=== PATIENT | female | born 1930 | race Hispanic/Latino ===

== ENCOUNTER 2018-06-29 16:49 | Emergency (ER) | payer OTHER, MEDICARE ==
[2018-06-29] MEDS ORDERED: SODIUM CHLORIDE 0.9% 500ML 500 ML IV ONE (17:03)
[2018-06-29 17:22] LABS: APPEARANCE,URINE Clear (CLEAR); BILIRUBIN,URINE Negative (NEGATIVE); COLOR,URINE Yellow (YELLOW); GLUCOSE, URINE (UA) Negative (NEGATIVE); KETONES,URINE Negative (NEGATIVE); LEUKOCYTE ESTERASE ,URINE Trace (NEGATIVE); NITRATE,URINE Negative (NEGATIVE); OCCULT BLOOD,URINE Trace (NEGATIVE); PROTEIN,URINE Negative (NEGATIVE); UROBILINOGEN,URINE 0.2 mg/dL (0.2-1.0)
[2018-06-29 17:31] LABS: BACTERIA,URINE Rare /HPF (None Seen); RBC,URINE None Seen /HPF (0-1); SQUAMOUS EPITHELIAL CELL,UR None Seen /HPF (0-2); WBC,URINE 0-1 /HPF (0-1)
== END 2018-06-29 19:02 | disposition home or self-care (01) ==
LOC: EDH 16:49
DX: E86.0 Dehydration (principal); H81.399 Other peripheral vertigo, unspecified ear; I10 Essential (primary) hypertension; E78.5 Hyperlipidemia, unspecified; Z79.899 Other long term (current) drug therapy
CPT/HCPCS: 70450; 81001; 84484; 93005; 99285; J7040

== ENCOUNTER 2018-10-22 10:01 | Observation (INO) | payer OTHER, MEDICARE ==
[~2018-10-22] VITALS: Ht 147.3 cm; Wt 57.7 kg
[2018-10-22] MEDS ORDERED: SODIUM CHLORIDE 0.9% 1000ML 1,000 ML IV ONE ×2 (10:13→16:06)
[2018-10-22] MEDS ORDERED: ACETAMINOPHEN EXTRA STRENGTH 500 MG TABLET ONE (10:14)
[2018-10-22 10:35] LABS: BASOPHILS % (AUTO) 0.6 % (0.0-5.0); EOSINOPHILS % (AUTO) 0.1 % (0.0-8.0); HEMATOCRIT 39.7 % (36-48); LYMPHOCYTES % (AUTO) 12.3 % (21.0-51.0); MEAN CORPUSCULAR HEMOGLOBIN 28.5 pg (27.0-33.0); MEAN CORPUSCULAR HGB CONC 32.8 g/dL (32.0-36.0); MEAN CORPUSCULAR VOLUME 86.8 fL (79-99); MONOCYTES % (AUTO) 6.8 % (3.0-13.0); NEUTROPHILS % (AUTO) 80.2 % (40.0-77.0); PLATELET COUNT (AUTO) 197 K/uL (130-400); RED BLOOD CELL COUNT(AUTO) 4.57 MIL/uL (4.00-5.50); RED CELL DISTRIBUTION WIDTH 15.8 % (11.0-15.5); WHITE BLOOD COUNT (AUTO) 7.7 K/uL (4.8-10.8)
[2018-10-22 10:41] LABS: CARBON DIOXIDE 25 mmol/L (21-32); CHLORIDE 104 mmol/L (101-111); CREATININE 0.7 mg/dL (0.5-1.5); GLOMERULAR FILTR. RATE CALC 84 mL/min (>60); GLUCOSE,RANDOM 110 mg/dL (70-105); POTASSIUM 3.3 mmol/L (3.5-5.1); SODIUM SERUM 139 mmol/L (136-145); UREA NITROGEN, BLOOD 13 mg/dL (7-18)
[2018-10-22 10:48] LABS: INR 0.93 (0.85-1.15); PARTIAL THROMBOPLASTIN TIME 30.1 SEC (26.3-35.5); PROTHROMBIN TIME 9.8 SEC (9.6-11.6)
[2018-10-22 10:54] LABS: ALANINE AMINOTRANSFERASE 17 U/L (12-78); ALBUMIN 3.4 g/dL (3.5-5.0); ASPARTATE AMINOTRANSFERASE 24 U/L (10-37); BILIRUBIN,TOTAL 0.5 mg/dL (0.2-1.0); CREATINE KINASE, TOTAL 45 U/L (21-232); MYOGLOBIN 53 ng/mL (10-92); TOTAL PROTEIN, SERUM 6.5 g/dL (6.0-8.3); TROPONIN I < 0.04 ng/mL (0.00-0.06)
[2018-10-22 11:53] LABS: BILIRUBIN,URINE Negative (NEGATIVE); COLOR,URINE Yellow (YELLOW); GLUCOSE, URINE (UA) Negative (NEGATIVE); KETONES,URINE Negative (NEGATIVE); LEUKOCYTE ESTERASE ,URINE Negative (NEGATIVE); NITRATE,URINE Negative (NEGATIVE); OCCULT BLOOD,URINE Nonhemolyzed Trace (NEGATIVE); PROTEIN,URINE Negative (NEGATIVE)
[2018-10-22 11:57] LABS: APPEARANCE,URINE CLEAR (CLEAR)
[2018-10-22 12:34] LABS: BACTERIA,URINE Rare /HPF (None Seen); RBC,URINE 0-1 /HPF (0-1); SQUAMOUS EPITHELIAL CELL,UR Rare /HPF (0-2); WBC,URINE 0-1 /HPF (0-1)
[2018-10-22] MEDS ORDERED: MORPHINE SULFATE 2 MG/ML 1ML SYG IVP PRN (15:15)
[2018-10-22] MEDS ORDERED: HYDROCODONE/ACETAMINOPHEN 5/325 MG TAB PO PRN (15:15)
[2018-10-22] MEDS ORDERED: ACETAMINOPHEN 325 MG TAB PO PRN (15:15)
[2018-10-22] MEDS ORDERED: ONDANSETRON HCL 4 MG/2 ML VIAL IVP PRN (15:15)
[2018-10-22] MEDS: AZITHROMYCIN 500MG+NS 250ML 250 ML IV SCH (16:00)
[2018-10-22] MEDS: CEFTRIAXONE SODIUM 1 GM IVP SCH (16:00)
[2018-10-22] MEDS ORDERED: AZITHROMYCIN 500MG+NS 250ML 250 ML IV ONE (16:07)
[2018-10-22] MEDS ORDERED: ACETAMINOPHEN 325 MG TAB ONE (17:22)
[2018-10-23 00:44] VITALS: BP 134/70
[2018-10-23] MEDS: SODIUM CHLORIDE 0.9% 1000ML 1,000 ML IV SCH ×2 (01:22→04:35)
[2018-10-23] MEDS: ENOXAPARIN SODIUM 40 MG/0.4 ML SYRINGE SQ SCH ×2 (01:27→15:53)
[2018-10-23 04:00] VITALS: BP 123/73
[2018-10-23 04:52] LABS: HEMATOCRIT 35.2 % (36-48); MEAN CORPUSCULAR HEMOGLOBIN 29.1 pg (27.0-33.0); MEAN CORPUSCULAR HGB CONC 33.3 g/dL (32.0-36.0); MEAN CORPUSCULAR VOLUME 87.2 fL (79-99); PLATELET COUNT (AUTO) 158 K/uL (130-400); RED BLOOD CELL COUNT(AUTO) 4.03 MIL/uL (4.00-5.50)
[2018-10-23 05:14] LABS: CREATININE 0.6 mg/dL (0.5-1.5)
[2018-10-23 05:16] LABS: POTASSIUM 2.8 mmol/L (3.5-5.1)
[2018-10-23] MEDS ORDERED: POTASSIUM CHLORIDE 10% ELIXIR 20 MEQ/15 ML UDCUP PO PRN (06:30)
[2018-10-23] MEDS ORDERED: POTASSIUM CHLORIDE 20MEQ/100ML 100 ML IV PRN (06:30)
[2018-10-23] MEDS ORDERED: POTASSIUM CHLORIDE 20 MEQ ERTAB PO PRN (06:30)
[2018-10-23 08:00] VITALS: BP 128/70
[2018-10-23] MEDS: LIDOCAINE HCL-MPF 1% 2ML VIAL IVP PRN ×2 (08:42→12:44)
[2018-10-23] MEDS ORDERED: PNEUMOCOCCAL VACCINE POLYVALENT 0.5 ML/VIAL [PPV] IM SCH (09:00)
[2018-10-23] MEDS ORDERED: AMLO10TA7 PO (11:08)
[2018-10-23] MEDS ORDERED: OMEP40CA37 PO (11:08)
[2018-10-23] MEDS ORDERED: LOSA50TA64 PO (11:08)
[2018-10-23] MEDS ORDERED: ROSU20TA30 PO (11:08)
[2018-10-23] MEDS ORDERED: FAMO40TA7 PO (11:08)
[2018-10-23 12:00] VITALS: BP 124/66
[2018-10-23] MEDS: CEFTRIAXONE SODIUM 1 GM IVP SCH (15:53)
[2018-10-23] MEDS: AZITHROMYCIN 500MG+NS 250ML 250 ML IV SCH (15:53)
[2018-10-23] MEDS ORDERED: DOXY100C2 PO (16:40)
[2018-10-23] MEDS ORDERED: BENZ-39 PO (16:40)
--- NOTE | 2018-10-23 17:03 | NUR ---
DM PT SEEN READY FOR DC, WITH DAVID AT BEDSIDE, [employer], AAOX3, DAUGHTER [employer] TO TRANSPORT, PROVIDER SERVICES 4/HR DAILY AND WALKER, SHOWER CHAIR, CANE, PLAN IS HOME NO CONCERN VOICED Addendum: 10/25/18 at 1705 by ADRIANE HELTON RN CM Amended: Links added.
--- NOTE | 2018-10-23 18:28 | NUR ---
DISCHARGE PATIENT AND DAUGHTERS GIVEN DISCHARGE INSTRUCTION AND EDUCATION ON NEW PRESCRIBED MEDICATION, SIDE EFFECTS AND FOLLOW UP APPOINTMENTS. PATIENT AND DAUGHTERS VERBALIZED UNDERSTANDING OF ALL EDUCATION GIVEN VIA TEACH BACK. NO CONCERNS VOICED. IV DISCONTINUED, CATHETER INTACT. PATIENT LEFT VIA WHEELCHAIR TO PRIVATE CAR, DAUGHTER AND PCP AT SIDE. NO DISTRESS NOTED UPON DISCHARGE. ALL BELONGINGS TAKEN WITH.
== END 2018-10-23 18:25 | disposition home or self-care (01) ==
LOC: EDH 10:01 → EDHIP 14:39 → 3AH 23:40
PROVIDERS: ADMIT Internal Medicine Critical Care Medicine; ATTEND Internal Medicine Critical Care Medicine
DX: J20.9 Acute bronchitis, unspecified (principal); E86.0 Dehydration; I95.9 Hypotension, unspecified; E87.6 Hypokalemia; B34.9 Viral infection, unspecified; J00 Acute nasopharyngitis [common cold]; I48.0 Paroxysmal atrial fibrillation; Z79.899 Other long term (current) drug therapy; Z23 Encounter for immunization
CPT/HCPCS: 36415 ×2; 71045; 80048; 80053; 81001; 82550 ×2; 83605; 83874; 84132; 84484 ×2; 85025; 85027; 85610; 85730; 87040 ×2; 87071; 87077; 87088; 87186; 87205; 87486; 87581; 87633; 87798; 87804 ×2; 90732; 93005 ×2; 96361; 96365; 96366; 96367; 96372; 96375; 96376; 99284; A4218; G0009; G0378 ×28; J0456 ×2; J0696; J1650 ×2; J3480; J3490 ×2; J7030 ×3

== ENCOUNTER 2021-08-16 01:54 | Observation (INO) | payer OTHER, MEDICARE ==
[~2021-08-16] VITALS: Ht 160 cm; Wt 57.2 kg
[~2021-08-16 01:54] MED LIST: AMLO-258 PO; BENZ-39 PO; DOXY100C5 PO; FAMO40TA7 PO; LOSA50TA64 PO; OMEP40CA21 PO; ROSU20TA31 PO
[2021-08-16 02:17] LABS: ABG BASE EXCESS -1.6 mmol/L (-2.0-3.0); ABG HCO3 22.4 mmol/L (21.0-28.0); ABG OXYGEN SATURATION 87.8 % (95.0-99.0); ABG PCO2 36 mmHg (32-45)
[2021-08-16 02:28] LABS: BASOPHILS % (AUTO) 0.5 % (0.0-5.0); HEMATOCRIT 39.5 % (36-48); LYMPHOCYTES % (AUTO) 17.1 % (21.0-51.0); MEAN CORPUSCULAR HGB CONC 31.9 g/dL (32.0-36.0); MEAN CORPUSCULAR VOLUME 87.8 fL (79-99); MONOCYTES % (AUTO) 7.4 % (3.0-13.0); NEUTROPHILS % (AUTO) 72.9 % (40.0-77.0); PLATELET COUNT (AUTO) 202 K/uL (130-400); RED CELL DISTRIBUTION WIDTH 15.5 % (11.0-15.5); WHITE BLOOD COUNT (AUTO) 7.5 K/uL (4.8-10.8)
[2021-08-16 02:48] LABS: B-TYPE NATRIURETIC PEPTIDE 324 pg/mL (0-100)
[2021-08-16 02:50] LABS: INR 1.03 (0.85-1.15); PROTHROMBIN TIME 11.2 SEC (9.6-11.6)
[2021-08-16 02:56] LABS: CREATININE 0.7 mg/dL (0.5-1.5); POTASSIUM 3.5 mmol/L (3.5-5.1)
[2021-08-16 03:00] LABS: ALBUMIN 3.3 g/dL (3.5-5.0); BILIRUBIN,TOTAL 0.3 mg/dL (0.2-1.0); TOTAL PROTEIN, SERUM 6.5 g/dL (6.0-8.3)
[2021-08-16] MEDS ORDERED: ASPIRIN 325MG TAB PO ONE (04:00)
[2021-08-16] MEDS ORDERED: ACETAMINOPHEN 325 MG TAB PO PRN (04:00)
[2021-08-16] MEDS ORDERED: FUROSEMIDE 20MG VIAL IV ONE (04:00)
[2021-08-16] MEDS ORDERED: IPRATROPIUM/ALBUTEROL SULFATE 3 ML SOLUTION IH PRN (04:00)
[2021-08-16] MEDS ORDERED: ONDANSETRON 4MG INJ IV PRN (04:00)
[2021-08-16] MEDS ORDERED: HYDRALAZINE 20MG/ML VIAL IV PRN (04:00)
[2021-08-16] MEDS ORDERED: NITROGLYCERIN 0.4 MG SL TAB SL PRN (04:00)
[2021-08-16] MEDS ORDERED: METO-409 PO (04:38)
[2021-08-16] MEDS ORDERED: OMEP20CA12 PO (04:38)
[2021-08-16] MEDS ORDERED: LOSA25TA41 PO (04:38)
[2021-08-16] MEDS ORDERED: SERT-439 PO (04:38)
[2021-08-16] MEDS ORDERED: ASPI-1005 PO (04:38)
[2021-08-16] MEDS ORDERED: ROSU20TA31 PO (04:38)
[2021-08-16 05:37] VITALS: BP 131/76
[2021-08-16 06:32] LABS: APPEARANCE,URINE CLEAR (CLEAR); BILIRUBIN,URINE NEGATIVE (NEGATIVE); COLOR,URINE YELLOW (YELLOW); GLUCOSE, URINE (UA) NEGATIVE (NEGATIVE); KETONES,URINE NEGATIVE (NEGATIVE); LEUKOCYTE ESTERASE ,URINE NEGATIVE (NEGATIVE); NITRATE,URINE NEGATIVE (NEGATIVE); OCCULT BLOOD,URINE TRACE-INTACT (NEGATIVE); PROTEIN,URINE NEGATIVE (NEGATIVE); UROBILINOGEN,URINE 0.2 mg/dL (0.2-1.0)
[2021-08-16 06:50] LABS: BACTERIA,URINE Rare /HPF (None Seen); RBC,URINE 0-1 /HPF (0-1); SQUAMOUS EPITHELIAL CELL,UR Rare /HPF (0-2); WBC,URINE 0-1 /HPF (0-1)
[2021-08-16] MEDS ORDERED: FUROSEMIDE 20MG VIAL IV SCH (07:30)
[2021-08-16] MEDS ORDERED: IOHEXOL-350 75 ML VIAL IV ONE ×2 (08:08→09:01)
[2021-08-16 08:35] VITALS: BP 126/81
[2021-08-16] MEDS: FAMOTIDINE 20MG VIAL IV SCH ×2 (10:18→20:13)
[2021-08-16 12:36] VITALS: BP 114/73
[2021-08-16 16:30] VITALS: BP 102/57
[2021-08-16 19:11] VITALS: BP 106/53
[2021-08-16 23:48] VITALS: BP 121/72
[2021-08-17 03:17] VITALS: BP 119/73
[2021-08-17 08:30] VITALS: BP 115/65
[2021-08-17] MEDS ORDERED: FUROSEMIDE 20 MG TABLET PO SCH (09:00)
[2021-08-17] MEDS: FAMOTIDINE 20MG VIAL IV SCH (10:06)
[2021-08-17 12:59] VITALS: BP 141/90
[2021-08-17] MEDS ORDERED: FURO20TA6 PO (16:40)
[2021-08-17] MEDS ORDERED: METO-391 PO (16:40)
[2021-08-17] MEDS ORDERED: LOSA25TA41 PO (16:40)
== END 2021-08-17 18:20 | disposition home or self-care (01) ==
LOC: EDH 01:54 → UNDOADMIN 03:55 → EDHIP 03:55 → INTOOBSV 04:11 → EDHIP 04:11 → 2DH 05:36
PROVIDERS: ADMIT Hospitalist; ATTEND Hospitalist
DX: J96.01 Acute respiratory failure with hypoxia (principal); Z20.822 Contact with and (suspected) exposure to COVID-19; E87.70 Fluid overload, unspecified; I11.0 Hypertensive heart disease with heart failure; I50.9 Heart failure, unspecified; I48.0 Paroxysmal atrial fibrillation; J81.1 Chronic pulmonary edema; E11.9 Type 2 diabetes mellitus without complications; M19.90 Unspecified osteoarthritis, unspecified site; E78.00 Pure hypercholesterolemia, unspecified; F41.9 Anxiety disorder, unspecified; Z79.82 Long term (current) use of aspirin; Z95.0 Presence of cardiac pacemaker; Z79.899 Other long term (current) drug therapy
CPT/HCPCS: 36415 ×2; 36600; 71045; 71275; 74018; 80053; 81001; 82803; 83690; 83880 ×2; 84484 ×3; 85025; 85378; 85610; 87635; 93005; 93306; 93356; 96374; 96375; 96376 ×2; 99285; G0378 ×2; J1940; J3490 ×3; Q9967 ×2